=== PATIENT | male | born 1960 | race Caucasian/White ===

== ENCOUNTER 2020-01-28 08:25 | Emergency (ER) | payer OTHER, SELFPAY ==
[2020-01-28 08:40] VITALS: BP 113/67; PULSE 56; RESP 17; TEMP 36.5; O2SAT 97; BMI 23.0
[2020-01-28] MEDS: Tetracaine HCl/PF 0.5% Oph Sol 4 ML DROPS 1 DROP EYE-BOTH (08:59)
[2020-01-28] MEDS: Fluorescein Sodium STRIP 1 STRIP EYE-BOTH ×3 (08:59→09:00)
--- NOTE | 2020-01-28 09:20 | ED_ITS ---
HPI - Eye Problem General Chief complaint: Eye Problems Stated complaint: SCRATCHED IN BOTH EYES WORK RELATED Time Seen by Provider: 01/28/20 08:43 Source: patient Mode of arrival: ambulatory Limitations: no limitations History of Present Illness HPI Narrative: patient presents to ED for bilateral eye irritation but more on the left due to exposure from krishnan from wielding that occurred yesterday while at work. Patient states he did not have his protective shield on. Patient states he was in near wielding equipment but was close enough intermittent distance to be exposed to it. Patient denies any blurry vision. Patient states this has happened before many times in the past when given antibiotic ointment for the abrasion. Related Data Previous Rx's Medication Instructions Recorded erythromycin 0.5 inch OPHTHALMIC (EYE) QID 7 01/28/20 Days #3.5 g Allergies Allergy/AdvReac Type Severity Reaction Status Date / Time No Known Allergies* Allergy Unknown Uncoded 01/28/20 08:43 Review of Systems Constitutional: Constitutional: Reports as per HPI and Reports no additional constitutional complaints Eyes: Eyes: Reports as per HPI and Reports no additional eye complaints Comments: Bilateral eye irritation but more on the left ENT: Reports system reviewed and no additional complaints, except as documented and Reports as per HPI Cardiovascular: Cardiovascular: Reports as per HPI and Reports no additional cardiovascular complaints Respiratory: Respiratory: Reports as per HPI and Reports no additional respiratory complaints Gastrointestinal: Gastrointestinal: Reports as per HPI and Reports no additional gastrointestinal complaints Musculoskeletal: Musculoskeletal: Reports no additional musculoskeletal complaints and Reports as per HPI Neurologic: Reports system reviewed and no additional complaints, except as documented and Reports as per HPI Psychiatric: Psychiatric: Reports no additional psychiatric complaints and Reports as per HPI [facility] Past Medical History Medical History (Updated 01/28/20 @ 09:29 by GEO Vincent) No known health problems Social History Social History Advance Directives: No Advance Directives Information Provided: No Physical Exam Vital Signs: Vital Signs: Last Vital Signs Temp 97.7 F 01/28/20 08:40 Pulse 56 01/28/20 08:40 Resp 17 01/28/20 08:40 BP 113/67 01/28/20 08:40 Pulse Ox 97 01/28/20 08:40 Body Mass Index 23.0 Const: General: cooperative, healthy appearing, comfortable, no acute distress, well developed, alert and awake Orientation/consciousness: patient oriented x3 HENMT: Head: Yes normal to inspection and Yes No palpable skull fracture present Eyes: Other: both eyes pH are 7.3. Left eye tonometry pressure is 9. Right eye tonometry pressure 16. left eye positive for minute corneal abrasion. Right eye negative for corneal abrasion or corneal ulcer. right eye visual acuity is 20/20. Left eye visual acuity is 20/25 Neck: Neck: Yes normal visual inspection and Yes full ROM Chest: Chest palpation & inspection: normal inspection of the chest, normal palpation of entire chest wall and no localized rib tenderness Resp: Effort & Inspection: normal respiratory effort and able to speak in complete sentences Auscultation: clear to auscultation bilaterally Cardio: Jugular venous distension: no JVD Heart sounds: S1 normal heart sound present and S2 normal heart sound present GI: Inspection: Yes normal to inspection and No abdominal wall ecchymosis Palpation (GI): Soft to palpation, not firm, nontender, no guarding and not rigid : General: No CVA tenderness and Yes no CVA tenderness Back/Spine/Pelvis: Back: no CVA tenderness, No CVA tenderness and No back tenderness Skin: General skin exam: no rashes or lesions noted Neuro: General: patient oriented x3, gait normal and CN's II-XI intact bilaterally Cranial nerves: Yes CN's II-XII intact bilaterally Extrem: General: Yes normal to inspection and Yes full ROM Psych: Appearance: grossly normal and well kempt Course Course Course Narrative: Patient will have eye evaluation. Reevaluation(s) Reevaluation #1: Physical exam indicate corneal abrasion. Physical exam does not indicate any acidic or alkaline burn to the eye. Negative for corneal ulcers. History physical exam does not indicate glaucoma. Waiting for visual acuity test. Time: 09:27 MDM - Eye Problem MDM Narrative Medical decision making narrative: corneal abrasion Discharge Plan Discharge Clinical Impression: Corneal abrasion Patient Disposition: Home, Self-Care Instructions: Corneal Abrasion (ED) Additional Instructions: return to the ED immediately for worsening eye pain, change or loss of vision, blurry vision, headache, dizziness, green discharge from eyes, or any other concerning symptoms. Prescriptions: New erythromycin 5 mg/gram (0.5 %) ointment 0.5 inch ophthalmic (eye) QID 7 Days Qty: 3.5 RF: 0 Referrals: Chuckie Eaton [Physician] - 2 days ( left eye corneal abrasion after being exposed to Spark from wielding.) Stand Alone Forms: Work/School Release Interventions: ED Discharge Assessment Last Done: 01/28/20 09:44 Discharge Date/Time: 01/28/20 09:44
== END 2020-01-28 09:44 | disposition home or self-care (01) ==
PROVIDERS: Emergency Provider Emergency Medicine; PCP Internal Medicine
DX: S05.02XA Injury of conjunctiva and corneal abrasion without foreign body, left eye, initial encounter (principal); S05.01XA Injury of conjunctiva and corneal abrasion without foreign body, right eye, initial encounter; Y28.9XXA Contact with unspecified sharp object, undetermined intent, initial encounter; Y93.9 Activity, unspecified; Y92.9 Unspecified place or not applicable; Y99.0 Civilian activity done for income or pay
CPT/HCPCS: 99283

== ENCOUNTER 2020-02-25 16:30 | Outpatient (REF) | payer OTHER, SELFPAY | END 2020-02-25 16:31 | disposition home or self-care (01) | LOC: HO.LAB 16:30 | PROVIDERS: Visit Provider Internal Medicine | DX: Z20.828 Contact with and (suspected) exposure to other viral communicable diseases (principal) | CPT/HCPCS: C9803; U0003 ==